=== PATIENT | female | born 1950 | race African-American/Black ===

== ENCOUNTER 2017-09-30 18:45 | Emergency (ER) | payer OTHER ==
[~2017-09-30] VITALS: Ht 157.5 cm; Wt 70.3 kg
[2017-09-30] MEDS ORDERED: COREG6.25 MG PO (18:55)
[2017-09-30] MEDS ORDERED: JANUMET XR 1001 EACH PO (18:55)
[2017-09-30] MEDS ORDERED: IMDUR 30 MG TAB30 M1 PO (18:56)
[2017-09-30] MEDS ORDERED: AMARYL2 MG PO (18:57)
[2017-09-30] MEDS ORDERED: LISINOPRIL20 MG PO (18:57)
[2017-09-30] MEDS ORDERED: ASPIRIN81 M2 PO (18:58)
[2017-09-30] MEDS ORDERED: NAPROXEN375 MG PO (20:03)
[2017-09-30] MEDS ORDERED: TRAMADOL 50 MG50 MG PO (20:03)
[2017-09-30 20:33] VITALS: BP 180/91
== END 2017-09-30 20:35 | disposition home or self-care (01) ==
LOC: ER 18:45
DX: S40.011A Contusion of right shoulder, initial encounter (principal); V49.50XA Passenger injured in collision with unspecified motor vehicles in traffic accident, initial encounter; Y93.89 Activity, other specified; Y92.89 Other specified places as the place of occurrence of the external cause; Y99.8 Other external cause status